=== PATIENT | female | born 1980 | race Caucasian/White ===

== ENCOUNTER 2018-11-02 16:10 | Outpatient (REF) | payer MEDICAID, SELFPAY ==
--- NOTE | 2018-11-02 14:45 | PAPFT_PTH ---
PATIENT: Bebe Perez LOC: [facility] U#:[id number] AGE/SX: 37/F ROOM: RE11/02/[address]: Sunitha Ramos : 1980 BED: DIS: 11/02/2018 SPEC #: [id number] RECD: 11/02/18 18:01 STATUS: QUAN DIMAS #: [id number] SHERRY: 11/02/18 14:[address]: Sunitha Ramos DEPT: [facility] Cytology RECD BY: Elyssa Saez ENTERED: 11/02/18 18:01 SP TYPE: PAPFT ROSY DR: Alma Rosa Banegas, ZULY Tissues: 1 - CX/ENDOCX FOR PAP SMEARS Procedures: PAP THIN PREP/UVM Screening Comments: [id number]
[2018-11-06 13:55] LABS: Chlamydia Result Negative; GC Result Negative; Specimen Description CERVIX
== END 2018-11-02 16:30 ==
LOC: LBN 16:10
PROVIDERS: PCP Nurse Practitioner Family; Visit Provider Obstetrics & Gynecology Gynecology
DX: Z00.00 Encounter for general adult medical examination without abnormal findings (principal); Z11.3 Encounter for screening for infections with a predominantly sexual mode of transmission; Z12.4 Encounter for screening for malignant neoplasm of cervix
CPT/HCPCS: 87491; 87591; 88142

== ENCOUNTER 2018-11-07 00:31 | Outpatient (CLI) | payer MEDICAID, SELFPAY ==
--- NOTE | 2018-11-07 12:44 | DI.US_ITS ---
SYMPTOMS/DIAGNOSIS: IUD STRING NOT PRESENT AT OS PELVIC ULTRASOUND: A transabdominal and transvaginal examination was carried out. An IUD is demonstrated in the endometrial cavity. The uterus measures 8.5 cm in length, 3.8 cm in height and 5.0 cm in width with an endometrial stripe thickness of 4.5 mm. The right ovary measures 3.3 x 1.7 x 1.5 cm, the left ovary 2.4 x 2.1 x 1.6 cm. The right kidney measures 10.5 cm, the left kidney 11.5 cm. There is no evidence of hydronephrosis. SUMMARY: An IUD is demonstrated in the endometrial cavity. The examination is otherwise unremarkable.
== END 2018-11-07 00:51 ==
PROVIDERS: PCP Nurse Practitioner Family; Visit Provider Obstetrics & Gynecology Gynecology
DX: T83.32XA Displacement of intrauterine contraceptive device, initial encounter (principal)
CPT/HCPCS: 76830; 76856

== ENCOUNTER 2019-04-08 10:45 | Outpatient (CLI) | payer MEDICAID, SELFPAY ==
[2019-04-08 12:06] LABS: ALT 47 U/L (14-59); AST 19 U/L (15-37); Alkaline Phosphatase 57 U/L (46-116); Anion Gap 6.8 mmol/L (3-11); BUN 12 mg/dL (7-18); Bilirubin, Total 0.4 mg/dL (0.2-1.0); CO2 28.2 mmol/L (21.0-32.0); CREATININE 0.88 mg/dL (0.55-1.02); Calcium 8.9 mg/dL (8.5-10.1); Calculated LDL 72 mg/dL; Chloride 106 mmol/L (98-107); Cholesterol 132 mg/dL (50-200); Glucose 85 mg/dL (70-100); HDL Cholesterol 54 mg/dL (40-60); Potassium 4.3 mmol/L (3.5-5.1); Sodium 141 mmol/L (136-145); TSH (W/Ref FT4) 0.37 uIU/mL (0.36-3.74); Total Protein 6.6 g/dL (6.4-8.2); Triglyceride 30 mg/dL (30-150)
== END 2019-04-08 11:05 ==
PROVIDERS: PCP Nurse Practitioner Adult Health; Visit Provider Nurse Practitioner Adult Health
DX: F32.9 Major depressive disorder, single episode, unspecified (principal); F41.9 Anxiety disorder, unspecified; R79.89 Other specified abnormal findings of blood chemistry; Z13.220 Encounter for screening for lipoid disorders; Z72.0 Tobacco use
CPT/HCPCS: 36415; 80053; 80061; 84443

== ENCOUNTER 2019-07-01 14:54 | Emergency (ER) | payer MEDICAID, SELFPAY ==
[2019-07-01 14:59] VITALS: BP 126/77; PULSE 89; RESP 18; TEMP 36.5; O2SAT 100
--- NOTE | 2019-07-01 15:27 | ED.GENADUL_ITS ---
Discharge Plan Disposition Patient Disposition: HOME Condition: Good Discharge Details Chief Complaint: Laceration Clinical Impression: Finger laceration Primary Care Provider: Ester Torres ED Provider: Ida Perdue Home Meds and New Rx's Prescriptions: Continued Mirena 1 EACH intrauterine device 1 ea Intrauterine ONCE Qty: 1 RF: 0 ibuprofen 600 MG tablet 600 mg PO Q6H PRN PRN (Reason: Abdominal Pain) Qty: 45 RF: 1 Discharge Instructions Instructions: Finger Laceration (ED) Additional Instructions: Keep wound clean, dry, covered. Please do not wash this until tomorrow. After that time, you may wash with running water to wash her hands and take shower. Otherwise, please keep dry. Allow the glue to come off naturally. Do not pick or pull at the adhesive. Monitor wound for signs infection getting redness, warmth, drainage, increased pain, fever/chills. If you develop these or other new/worsening symptom please seek care urgently once again. Otherwise, please follow-up with primary care as needed. Continue with splint for the next 5 days Referrals: Ester Torres, [facility] [employer] [Primary Care Provider] - Discharge Data Discharge Date/Time-TO BE ENTERED AT DEPARTURE: 07/01/19 15:58 Medical Decision Making Patient is a pleasant 38 year old RHD female presenting today with c/c of laceratin to the right hand. STate that she was cleaning a vase that had a chip when she cut her hand. Denies numbness/tingling. No weakness to the digit. Patient has a 1 cm linear laceration just distal to the MCP joint over the fifth digit right hand. It is in the subcutaneous tissue. No active bleeding. Patient will prefer to not closed with sutures. As the tissue does align well, I do feel that closure with adhesive followed by splinting is appropriate. Last tetanus was 2017. PProcedure note: Wound was copiously irrigated and explored to base in a bloodless field. No FB or debris noted. Wound edges aligned and thin layer of adhesive applied. She tolerated this well. Discussed wound care and discussed care of adhesive. She was given return precautions including signs of infection. All questions nad concerns were addressed, she is in agreemtn with this plan. Foam and metal splint applied. HPI General Mode of arrival: ambulatory . Date/Time Provider Initiated Documentation: 07/01/19 15:12 . Limitations to Documentation: no limitations . Information obtained by: patient and RN notes reviewed . History of Present Illness 38 year old F presents to the emergency department with the chief complaint of laceration to right 5th digit, described as moderate, Quality is described as burning, and is localized to the right and upper extremity. Patient reports no radiation. Patient started experiencing this minute(s) and it has been constant. No exacerbating factors reported . Patient notes no other symptoms.. Patient did receive the following treatments prior to arrival, none Related Data Home Medications Medication Instructions Recorded Confirmed ibuprofen 600 mg PO Q6H PRN PRN #45 tab 03/29/17 07/01/19 Mirena 1 ea INTRAUTERINE ONCE #1 implant 07/01/17 07/01/19 Previous Rx's Medication Instructions Recorded ibuprofen 600 mg PO Q6H PRN PRN #45 tab 03/29/17 Mirena 1 ea INTRAUTERINE ONCE #1 implant 07/01/17 Allergies Allergy/AdvReac Type Severity Reaction Status Date / Time codeine AdvReac Intermediate Nausea Verified 07/01/19 15:03 oxycodone [From Percocet] AdvReac Intermediate Nausea Verified 07/01/19 15:03 Sulfa (Sulfonamide AdvReac Intermediate Nausea Verified 07/01/19 15:03 Antibiotics) General Stated Complaint: Laceration MAGAN: 4 Review of Systems Constitutional Constitutional: Reports as per HPI, Denies chills and Denies fever(s) Musculoskeletal Musculoskeletal: Reports as per HPI Integumentary/Breasts Skin/Breast: Reports as per HPI Neurologic Neurologic: Reports as per HPI, Denies sensory deficit and Denies paresthesias [facility] Medical History Anxiety and depression (Chronic) Citalopram, Buspar, Sertraline & Paroxetine Counseling Atypical squamous cell changes of undetermined significance (ASCUS) on cervical cytology with negative high risk human papilloma virus (HPV) test result (Inactive 08/04/17) Calculus of kidney (Inactive 07/08/16) MADHAVI II (cervical intraepithelial neoplasia II) (Acute) 07/2017 colposcopy biopsy: MADHAVI-2. s/p LEEP. MADHAVI II (cervical intraepithelial neoplasia II) (Resolved 08/18/17) 07/2017. On colpo directed bx. 09/2017 LEEP: MADHAVI 2 clear margins. Functional urinary incontinence (Inactive 10/29/16) GERD (gastroesophageal reflux disease) (Inactive 07/08/16) History of herpes genitalis (Inactive 08/25/16) IUD (intrauterine device) in place (Chronic 08/11/17) Mirena. Strings not visible Pityriasis rosea (Inactive) Tension type headache, unspecified (Chronic 06/29/16) Tobacco use (Chronic 01/26/18) Vaginal wall prolapse without uterine prolapse (Acute 09/16/16) . That has improved and patient is not currently symptomatic Surgical History Cervical Conization/LEEP (Resolved 05/30/07) S/P wisdom tooth extraction (Acute) Social History Smoking/Tobacco Use Status: Current every day Alcohol Intake: never Drug use: Never Substance use type: does not use Household members: children and other Details: Ex- Pipo-resides in [place]. Pipo-F of youngest child. limited contact Housing: apartment Number of Children: 4 Communication Needs: None Do you need help understanding health information?: Never current occupation: Studying for [email or web address] Current gender identity: female What type of physical activity do you participate in: none Seatbelt use: sometimes Working smoke detector in home: Yes Fire extinguisher in home: Yes Carbon monox detector in home: Yes Do you feel safe in your relationship?: Yes Additional Social history: Children: [place], Miguel Angel, Estuardo, Ana Female Reproductive History Menstrual control method: progestin IUCD History History 5 Para 4 Hx # Term Pregnancies 4 Multiple births Hx # Pregnancies 0 Ectopic pregnancies AB induced Hx Number of Living Children 4 AB spontaneous Exam Const General: cooperative, healthy appearing, comfortable, no acute distress and well developed Nutritional Appearance: average body habitus and well nourished Orientation: alert and awake Resp Effort & Inspection: normal respiratory effort, able to speak in complete sentences and no respiratory distress Cardio Rate: regular rate Rhythm: regular rhythm Skin Trauma: laceration Neuro General: alert and awake Cognition: normal cognition Speech: speech normal Gait: normal gait Sensory Exam: no sensory deficits noted Extrem General: full ROM and normal capillary refill Hand/finger images: 1. 1cm laceration just distal to the MCP joint into the subQ tissue. No ligamentous injury. Good extension against resistance. Pain over area of laceration. No active bleeding. Full ROM. Brisk capillary refill. No FB or debris noted. Psych Appearance: grossly normal and well kempt Mental Status: mental status grossly normal Speech and Movement: speech and movement normal Course Vital Signs Vital signs: Vital Signs Temperature 36.5 C 07/01/19 14:59 Pulse 89 07/01/19 14:59 Respiratory Rate 18 07/01/19 14:59 Blood Pressure 126/77 07/01/19 14:59 Pulse Oximetry 100 07/01/19 14:59 Temperature 36.5 C 07/01/19 14:59 Temperature Source Skin 07/01/19 14:59 Pulse 89 07/01/19 14:59 Respiratory Rate 18 07/01/19 14:59 Respiratory Effort Non-Labored 07/01/19 15:01 Blood Pressure 126/77 07/01/19 14:59 Blood Pressure Position Sitting 07/01/19 14:59 Pulse Oximetry 100 07/01/19 14:59 Oxygen Delivery Method Room Air 07/01/19 14:59 Oxygen Flow Rate 0 07/01/19 14:59
== END 2019-07-01 15:58 | disposition home or self-care (01) ==
LOC: ER 16:02
PROVIDERS: Emergency Provider Physician Assistant; PCP Nurse Practitioner Adult Health
DX: S61.216A Laceration without foreign body of right little finger without damage to nail, initial encounter (principal); W26.8XXA Contact with other sharp object(s), not elsewhere classified, initial encounter
CPT/HCPCS: 12001

== ENCOUNTER 2020-01-15 18:14 | Emergency (ER) | payer MEDICAID, SELFPAY ==
[2020-01-15 18:21] VITALS: BP 136/89; PULSE 90; RESP 14; TEMP 36.6; O2SAT 99
--- NOTE | 2020-01-15 18:30 | RT.EKG_ITS ---
APPROVED REPORT Exam: Resting ECG Patient Location: E HR:81 bpm ECG Measurements Heart Rate 81 AXIS LA 173 P 93 QRSd 91 QRS 51 QT 355 T 54 QTc 414 Conclusion Sinus rhythm...normal P axis, V-rate 60- 99
--- NOTE | 2020-01-15 18:37 | ED.GENADUL_ITS ---
Discharge Plan Disposition Patient Disposition: HOME Condition: Good Discharge Details Chief Complaint: Abd Prob Clinical Impression: Generalized anxiety disorder, Epigastric burning sensation, Burning chest pain, UTI (urinary tract infection) Primary Care Provider: Ester Torres ED Provider: Martin Seymour Home Meds and New Rx's Prescriptions: New cephalexin [Keflex] 500 mg capsule 500 mg PO QID 5 Days Qty: 20 RF: 0 Continued Mirena 1 EACH intrauterine device 1 ea Intrauterine ONCE Qty: 1 RF: 0 lorazepam 0.5 mg tablet 0.5 mg PO DAILY PRN (Reason: anxiety) Qty: 10 RF: 0 ibuprofen 600 MG tablet 600 mg PO Q6H PRN PRN (Reason: Abdominal Pain) Qty: 45 RF: 1 Discharge Instructions Instructions: Chest Pain (ED), Urinary Tract Infection in Women (ED) Additional Instructions: At this time in hindsight does appear that your symptoms in your chest are likely from anxiety, panic, mild reflux. Your heart work-up is negative at this time. You do have evidence of a mild urinary tract infection. Please take the Keflex as directed. Please drink plenty of fluid and drink plenty of cranberry juice as this will help with the infection. If you notice any worsening of your symptoms, or any new symptoms such as vomiting, diarrhea, fever, chills, shortness of breath, chest pain, numbness, weakness, or fainting , please return immediately to the emergency department for reevaluation. Please follow up with your primary care provider as soon as possible for reassessment and reevaluation. As always, it was a pleasure participating in your medical care today. Referrals: Ester Torres NP [Primary Care Provider] - Medical Decision Making <Josemanuel Conner MD - Last Filed: 01/15/20 19:40> 39 yo female with hx of anxiety, who comes in complaining of epigastric and chest burning and feeling anxious. Denies dyspnea, fevers, chills, n/v. She has no prior cardiac history. She arrives visibly anxious having burning in the epigastric area and mid chest. Denies diaphoresis. She has no abdominal tenderness, leg swelling, jvd, calf pain. Suspect her symptoms are due to anxiety/panic disorder but given description of pain will obtain lab work to evaluate for pancreatitis, hepatitis. Her heart score is 2 so will obtain ecg and troponin. No tachycardia or hypoxia, wells score is low will obtain d dimer and monitor. No tearing back pain so doubt dissection pt will be signed out to oncoming provider pending lab results and reassessment Differential Diagnosis Differential Diagnosis: anxiety, pancreatitis acs ECG Data Attestation: I personally reviewed and interpreted this ECG (s) as follows: Prior ECG tracings: not available for review Interpretation: sinus rhythm, rate of 80 pr 173, qtc 414, no acute st t wave ischemic findings <Martin Seymour DO - Last Filed: 01/15/20 23:00> 10:45 PM Patient's laboratory work-up has returned, including serial troponins. Serial troponins and work-up are negative, d-dimer negative, no indication for further emergent imaging. Urinalysis does show evidence of urinary tract infection and on reassessment she does state that she has been having frequency and mild burning. However she has been too anxious to come to the ER of concern for coronavirus. The remainder of her work-up is otherwise benign at this time. Heart score in the low risk category, with serial troponins EKG is benign, signs and symptoms are clinically inconsistent with ACS or STEMI. Patient will be discharged home at this time. Give Keflex for home use and a bottle here to start her prescription. I have extensively reviewed the treatment plan and discharge instructions with the patient. I have addressed all patient concerns at this time. The patient was made aware of what symptoms to monitor for that would warrant a return to the emergency department. Discussed the plan with the patient, they demonstrate verbal understanding and agreement with our assessment and plan at this time. HPI <Josemanuel Conner MD - Last Filed: 01/15/20 19:40> General Mode of arrival: ambulatory . Date/Time Provider Initiated Documentation: 01/15/20 18:26 . Limitations to Documentation: no limitations . Information obtained by: patient . History of Present Illness 39 year old F presents to the emergency department with the chief complaint of epigastric pain, described as moderate, and it has been constant. No relieving factors improve symptom(s), No exacerbating factors reported . Related Data Home Medications Medication Instructions Recorded Confirmed ibuprofen 600 mg PO Q6H PRN PRN #45 tab 03/29/17 01/15/20 Mirena 1 ea INTRAUTERINE ONCE #1 implant 07/01/17 01/15/20 lorazepam 0.5 mg tablet 0.5 mg PO DAILY PRN #10 tab 09/15/19 01/15/20 cephalexin [Keflex] 500 mg PO QID 5 Days #20 cap 01/15/20 Previous Rx's Medication Instructions Recorded ibuprofen 600 mg PO Q6H PRN PRN #45 tab 03/29/17 Mirena 1 ea INTRAUTERINE ONCE #1 implant 07/01/17 lorazepam 0.5 mg tablet 0.5 mg PO DAILY PRN #10 tab 09/15/19 cephalexin [Keflex] 500 mg PO QID 5 Days #20 cap 01/15/20 Allergies Allergy/AdvReac Type Severity Reaction Status Date / Time codeine AdvReac Intermediate Nausea Verified 01/15/20 18:25 oxycodone [From Percocet] AdvReac Intermediate Nausea Verified 01/15/20 18:25 Sulfa (Sulfonamide AdvReac Intermediate Nausea Verified 01/15/20 18:25 Antibiotics) General Stated Complaint: Abd Prob MAGAN: 3 Review of Systems <Josemanuel Conner MD - Last Filed: 01/15/20 19:40> All systems reviewed & are unremarkable except as noted in HPI and below Constitutional Constitutional: Denies chills, Denies fever(s) and Denies weakness Cardiovascular Cardiovascular: Denies dyspnea Respiratory Respiratory: Denies cough and Denies dyspnea Gastrointestinal Gastrointestinal: Denies abdominal pain, Denies nausea and Denies vomiting Musculoskeletal Musculoskeletal: Denies joint swelling Neurologic Neurologic: Denies weakness Psychiatric Psychiatric: Denies depression [facility] <Josemanuel Conner MD - Last Filed: 01/15/20 19:40> Medical History (Updated 01/15/20 @ 22:06 by Martin Seymour DO) Anxiety and depression (Chronic) Citalopram, Buspar, Sertraline & Paroxetine Counseling Atypical squamous cell changes of undetermined significance (ASCUS) on cervical cytology with negative high risk human papilloma virus (HPV) test result (Inactive 08/04/17) Calculus of kidney (Inactive 07/08/16) MADHAVI II (cervical intraepithelial neoplasia II) (Acute) 07/2017 colposcopy biopsy: MADHAVI-2. s/p LEEP. MADHAVI II (cervical intraepithelial neoplasia II) (Resolved 08/18/17) 07/2017. On colpo directed bx. 09/2017 LEEP: MADHAVI 2 clear margins. Functional urinary incontinence (Inactive 10/29/16) GERD (gastroesophageal reflux disease) (Inactive 07/08/16) History of herpes genitalis (Inactive 08/25/16) IUD (intrauterine device) in place (Chronic 08/11/17) Mirena. Strings not visible Pityriasis rosea (Inactive) Tension type headache, unspecified (Chronic 06/29/16) Tobacco use (Chronic 01/26/18) Vaginal wall prolapse without uterine prolapse (Acute 09/16/16) . That has improved and patient is not currently symptomatic Surgical History Cervical Conization/LEEP (Resolved 05/30/07) S/P wisdom tooth extraction (Acute) Family History Mother Diabetes Essential hypertension Father Myocardial infarction Grandfather Myocardial infarction Thyroid disorder Grandfather Diabetes Stroke Grandmother Dementia Grandmother Diabetes Neoplasm Lung (Non-Smoker), Ovarian, Renal Stroke Sister Mental disorder BiPolar Asthma Brother Mental disorder Schizophrenia (age 25) Maternal Aunt Neoplasm Colon CA dx'ed late 50s Social History Smoking/Tobacco Use Status: Current every day Alcohol Intake: never Drug use: Never Substance use type: does not use Household members: children and other Details: Ex- [place]-resides in [place]. [place]-F of youngest child. limited contact Housing: apartment Number of Children: 4 Communication Needs: None Do you need help understanding health information?: Never current occupation: Studying for [employer] Current gender identity: female What type of physical activity do you participate in: none Seatbelt use: sometimes Working smoke detector in home: Yes Fire extinguisher in home: Yes Carbon monox detector in home: Yes Do you feel safe at home: Yes Do you feel safe in your relationship?: Yes Additional Social history: Children: Miguel Angel [place], Ana Marte Female Reproductive History Menstrual control method: progestin IUCD History History 5 Para 4 Hx # Term Pregnancies 4 Multiple births Hx # Pregnancies 0 Ectopic pregnancies AB induced Hx Number of Living Children 4 AB spontaneous Exam <Josemanuel Conner MD - Last Filed: 01/15/20 19:40> Const General: anxious Orientation: alert HENUT Head: normal to inspection Ears: external ears normal General nose exam: external nose normal Mouth: moist mucous membranes Eyes General: appearance normal, both eyes and all related structures Neck Neck: normal visual inspection Resp Effort & Inspection: normal respiratory effort and able to speak in complete sentences Cardio Rate: regular rate Skin General skin exam: no rashes or lesions noted Neuro General: patient alert and patient oriented x3 Extrem General: normal to inspection Psych Mental Status: mental status grossly normal Course <Josemanuel Conner MD - Last Filed: 01/15/20 19:40> Vital Signs Vital signs: Vital Signs Temperature 36.6 C 01/15/20 18:21 Pulse 90 01/15/20 18:21 Respiratory Rate 14 01/15/20 18:21 Blood Pressure 136/89 01/15/20 18:21 Pulse Oximetry 99 01/15/20 18:21 Temperature 36.6 C 01/15/20 18:21 Temperature Source Tympanic 01/15/20 18:21 Pulse 90 01/15/20 18:21 Respiratory Rate 14 01/15/20 18:21 Respiratory Effort Non-Labored 01/15/20 18:24 Blood Pressure 136/89 01/15/20 18:21 Blood Pressure Position Sitting 01/15/20 18:21 Pulse Oximetry 99 01/15/20 18:21 Oxygen Delivery Method Room Air 01/15/20 18:21 Oxygen Flow Rate 0 01/15/20 18:21 Pain Level 0 01/15/20 18:21 Comment 01/15/20 18:21 Sign Out <Josemanuel Conner MD - Last Filed: 01/15/20 19:40> Sign Out Data: Sign Out Comment: pending labs and reassessment, anxiety chest/abdomen burning sensation Last updated by Josemanuel Conner MD at 01/15/20 19:41
[2020-01-15 19:15] LABS: Bilirubin Negative (Negative); Blood Trace-intact (Negative); Clarity Clear (Clear); Glucose Negative (Negative); Ketones Negative (Negative); Leukocyte Esterase Small (Negative); Nitrite Negative (Negative); Specific Gravity 1.015 (1.005-1.025); Urobilinogen 0.2 EU/dL (Up TO 0.2)
[2020-01-15 19:23] LABS: Bacteria Few HPF (Negative); Epithelial Cells Moderate HPF (Negative); Other Cells Negative (Negative); RBC Negative HPF (0-2)
[2020-01-15 19:24] LABS: C & S Indicated? No/Sq. Contamination; Casts Negative LPF (Negative); Crystals Negative HPF (Negative); Mucus Negative (Negative)
[2020-01-15 19:27] LABS: Abs Immature Grans 0.03 10^3/uL (0.0-0.06); Absolute Basophil Count 0.03 10^3/uL (0.0-0.2); Absolute Eosinophil Count 0.34 10^3/uL (0.0-0.7); Absolute Monocyte Count 0.47 10^3/uL (0.1-0.8); Absolute Neutrophil Count 6.52 10^3/uL (1.2-6.7); Basophils % 0.3; Eosinophils % 3.5; HCT 39.6 % (36.0-46.0); HGB 13.6 g/dL (11.2-15.7); Immature Grans % 0.3; Lymphocytes % 22.9; MCHC 34.3 % (32.0-36.0); MCV 90.2 fL (80-95); Monocytes % 4.9; Neutrophils % 68.1; Nucleated RBC 0 %; Platelet Count 241 10^3/uL (130-400); RBC 4.39 10^6/uL (3.93-5.22); RDW 12.2 % (11.7-14.6); RDW-SD 40.5 fL; WBC 9.59 10^3/uL (4.4-10.8)
[2020-01-15 19:43] LABS: PTT Activated 22.1 sec (21.0-31.4); Prothrombin Time 9.7 sec (9.3-11.0)
[2020-01-15 19:45] LABS: ALT 41 U/L (14-59); AST 27 U/L (15-37); Alkaline Phosphatase 65 U/L (46-116); Anion Gap 9.7 mmol/L (3-11); BUN 8 mg/dL (7-18); Bilirubin, Total 0.2 mg/dL (0.2-1.0); CO2 27.3 mmol/L (21.0-32.0); CREATININE 0.83 mg/dL (0.55-1.02); Chloride 106 mmol/L (98-107); Glucose 125 mg/dL (74-106); Lipase 120 U/L (73-393); Potassium 3.5 mmol/L (3.5-5.1); Sodium 143 mmol/L (136-145)
[2020-01-15 19:53] LABS: Magnesium 2.2 mg/dL (1.8-2.4)
[2020-01-15 19:54] LABS: Troponin I < 0.05 ng/mL (<0.06)
[2020-01-15 19:57] LABS: HCG Qual (Serum) Negative
[2020-01-15 20:00] LABS: D-Dimer 198 ng/mlFEU (<500)
--- NOTE | 2020-01-15 20:00 | RT.EKG_ITS ---
APPROVED REPORT Exam: Resting ECG Patient Location: E HR:60 bpm ECG Measurements Heart Rate 60 AXIS IN 187 P 76 QRSd 86 QRS 57 QT 384 T 56 QTc 385 Conclusion Sinus rhythm...normal P axis, V-rate 60- 99, no STEMI, unchanged
[2020-01-15] MEDS: LORazepam 1 MG TAB PO (20:09)
[2020-01-15 20:59] VITALS: BP 132/80; PULSE 79; RESP 16; TEMP 36.8; O2SAT 99
[2020-01-15 22:22] VITALS: BP 105/68; PULSE 64; RESP 14; O2SAT 100
[2020-01-15 22:48] LABS: Troponin I < 0.05 ng/mL (<0.06)
[2020-01-15] MEDS: Cephalexin 500 MG CAP, 4 CAPS/BTL PO (22:57)
== END 2020-01-15 23:25 | disposition home or self-care (01) ==
PROVIDERS: Emergency Medicine; Emergency Provider Student in an Organized Health Care Education/Training Program; PCP Nurse Practitioner Adult Health
DX: N39.0 Urinary tract infection, site not specified (principal); K21.9 Gastro-esophageal reflux disease without esophagitis; F41.1 Generalized anxiety disorder; R07.89 Other chest pain
CPT/HCPCS: 36415; 80053; 81025; 83690; 93005; 99284; 81003; 81015; 83735; 84484; 84703; 85025; 85379; 85610; 85730; 93010

== ENCOUNTER 2020-07-10 02:32 | Outpatient (CLI) | payer MEDICAID, SELFPAY ==
[2020-07-12 09:03] LABS: COVID-19 RT-PCR UVMMC Result Negative (Negative)
== END 2020-07-10 02:33 | disposition home or self-care (01) ==
LOC: LBO 02:32
PROVIDERS: PCP Nurse Practitioner Adult Health; Visit Provider Surgery
DX: Z20.822 Contact with and (suspected) exposure to COVID-19 (principal); Z01.818 Encounter for other preprocedural examination
CPT/HCPCS: U0003

== ENCOUNTER 2020-07-14 06:13 | Day surgery (SDC) | payer MEDICAID, SELFPAY ==
[2020-07-14 06:30] VITALS: BP 119/76; PULSE 85; RESP 18; TEMP 36.5; O2SAT 100
--- NOTE | 2020-07-14 06:42 | ENDO_ITS ---
Date of service: 07/14/20 Time of Service: 07:57 Endoscopy Report DATE OF PROCEDURE: 07/14/20 PRE-OP DIAGNOSIS: Feeling of her throat closing POST-OP DIAGNOSIS: other (Gastritis, esophagitis, Hiatal hernia, ? esophageal polyp) PROCEDURE: EGD with biopsies SURGEON: Elsie Bunch ANESTHESIA: other (General/ASA 2/Preet Casillas, WES) ESTIMATED BLOOD LOSS: 3 PATHOLOGY: other (Antrum bx, GE junction bx, GE junction polyp bx) COMPLICATIONS: None DISPOSITION: same day INDICATIONS: 39 y/o female with a history of PTSD, panic attacks, and anxiety presents to discuss a chronic sensation of pressure in her throat since July 29. She was seen by ENT at which time they performed a flexible laryngoscopy on 03/07/20 which noted there was erythema and edema of the arytenoid cartilage and posterior commissure. Shortly after this she was started on Famotidine and then switched to Omeprazole, with minimal change in her symptoms. She reports that she has an intermittent cough, with minimal mucus. She has noticed that she frequently clears her sinus passages, the area where my throat and nose meet. She does not feel that these symptoms are allergy related. She describes that she has high anxiety and frequently becomes concerned about what may be causing her symptoms and these feelings and thoughts can become over whelming. She is concerned that her symptoms may be related to cancer. She denies any chest pain, dyspnea or dyspnea with exterion. She denies any history of adverse reactions to anesthesia. She denies any history of stroke, seizures, [place], bleeding or clotting disorder. She denies having any metal impl anted in her body. FINDINGS: mild inflammation of the stomach Hiatal Hernia mild inflammation of the esophagus polyp at the GE junction PROCEDURE DESCRIPTION: After informed consent was obtained the patient was take to the procedure room and placed in a supine position. Monitors were applied and a time out was done. The patients name, date of , procedure type, allergies to medications and metal in their body was reviewed. A bite block was placed and the patient was sedated. Once sedated and comfortable the gastroscope was advanced through the oropharynx which was grossly normal into the esophagus. The proximal and mid- esophagus were normal. In the distal esophagus there was mild inflammation noted. The scope was advanced into the stomach and through the pylorus into the 3rd portion of the duodenum. The duodenum was noted to be normal. The scope was retracted back into the stomach and biopsies were done to rule out H. pylori. There were no ulcers. The scope was retro-flexed. The cardia and fundus were noted to be normal. There was a small hiatal hernia noted. The sco pe was retracted back into the esophagus and biopsies were done of the GE junction to rule out Denney's. The Z line was regular. The GE junction was at 35 cm. There was a small polyp at the GE junction that was biopsied. The scope was removed and the patient was woken up and taken back to [facility] in stable condition. Follow up: 2 weeks in the office. Restart Omeprazole
--- NOTE | 2020-07-14 06:44 | PDOC.DSDIS_ITS ---
Discharge Plan Disposition Patient Disposition: HOME Condition: Good Discharge Details Reason For Visit: EGD Attending Provider: Elsie Bunch Primary Care Provider: Ester Torres Home Meds and New Rx's Prescriptions: Continued Mirena 1 EACH intrauterine device 1 ea Intrauterine ONCE Qty: 1 RF: 0 sertraline 25 mg tablet 25 mg PO DAILY Qty: 30 RF: 1 clonazepam 0.5 mg tablet,disintegrating 0.5 mg PO BID PRN (Reason: panic attack(s)) Qty: 10 RF: 0 omeprazole 40 mg capsule,delayed release(DR/EC) 40 mg PO DAILY Qty: 30 RF: 1 ibuprofen 600 MG tablet 600 mg PO Q6H PRN PRN (Reason: Abdominal Pain) Qty: 45 RF: 1 Discharge Instructions Instructions: Hiatal Hernia (DC), Gastritis (DC), Diet for Stomach Ulcers and Gastritis (ED), Esophagitis (DC) Additional Instructions: Findings: some mild inflammation of the stomach, esophagus Small Hiatal hernia Small inflammatory polyp in the esophagus Follow up: 2 weeks Please call if you develop: fevers >101.5 Nausea or Vomiting Abdominal pain that is not transient DAY SURGERY UNIT POST ENDOSCOPY INSTRUCTIONS 1. Because there will be medication in your system for the next 24 hours, you may feel a little sleepy. Your coordination will be affected. Therefore: a. Do not drive or operate dangerous equipment for 24 hours. b. Do not drink alcohol beverages for 24 hours (not even beer). c. Plan to go home and rest for the day. 2. Generally there are no restrictions on your activity after a day or so has gone by, but you may feel a bit fatigued for a few days. 3 After you arrive home you may have a light meal and return to a normal diet as you can tolerate it without feeling sick to your stomach. 4. After surgery, you may feel pain or discomfort. This should be only transient, but if it persists please contact your doctor. 5. If there are any questions regarding the findings of your procedure, please feel free to contact your doctor. 6. If you are unable to contact your doctor with a problem, contact the hospital at [phone]. 7. Continue all your regular medications unless directed otherwise. I understand the above instructions and have no questions. Signature of Patient or Responsible Adult Escort Date/Time Name of Responsible Adult Escort Signature of Nurse Date/Time Referrals: Elsie Bunch MD [ [facility] STAFF PHYSICIAN] - 07/29/20 8:30 am Activity:: Activity as Tolerated Diet:: low acid Discharge Orders Discharge Orders: Discharge Order (Routine); Ordered 07/14/20 Ordered By: Elsie Bunch
[2020-07-14] MEDS: Lactated Ringers 1,000 ML 80 ML IV (07:24)
--- NOTE | 2020-07-14 07:30 | STOM_PTH ---
PATIENT: Bebe Perez LOC: [facility] U#:[id number] AGE/SX: 39/F ROOM: RE07/14/[address]: Elsie Bunch MD : 1980 BED: DIS: 07/14/2020 SPEC #: [id number] RECD: 07/14/20 12:46 STATUS: QUAN RE #: [id number] SHERRY: 07/14/20 07:[address]: Elsie Bunch DEPT: Surgical Specimen RECD BY: Elyssa Saez ENTERED: 07/14/20 12:48 SP TYPE: STOMACH OTHR DR: Ester Torres APRN Tissues: 1 - STOMACH BIOPSY 2 - ESOPHAGUS BIOPSY 3 - ESOPHAGUS BIOPSY Procedures: GROSS AND MICRO LEVEL 4 Comments: [id number]
[2020-07-14 07:55] VITALS: BP 129/74; PULSE 91; RESP 18; TEMP 36.5; O2SAT 97
[2020-07-14 08:00] VITALS: BP 120/83; PULSE 84; RESP 17; TEMP 36.5; O2SAT 96
[2020-07-14 08:05] VITALS: BP 117/75; PULSE 82; RESP 21; TEMP 36.5; O2SAT 96
[2020-07-14 08:10] VITALS: BP 109/71; PULSE 76; RESP 18; TEMP 36.5; O2SAT 96
[2020-07-14 08:40] VITALS: BP 94/54; PULSE 63; RESP 15; TEMP 36.6; O2SAT 95
== END 2020-07-14 09:20 | disposition home or self-care (01) ==
PROVIDERS: PCP Nurse Practitioner Adult Health; Visit Provider Surgery
PROC: 0DJ68ZZ Inspection of Stomach, Via Natural or Artificial Opening Endoscopic (ICD-10-PCS; CPT 43235; principal; 2020-07-14 07:30)
DX: F45.8 Other somatoform disorders (principal); K21.00 Gastro-esophageal reflux disease with esophagitis, without bleeding; K29.70 Gastritis, unspecified, without bleeding; K44.9 Diaphragmatic hernia without obstruction or gangrene; F43.10 Post-traumatic stress disorder, unspecified
CPT/HCPCS: 43239; 81025; 88305; J2001; J2250; J3010

== ENCOUNTER 2020-11-30 13:53 | Outpatient (REF) | payer MEDICAID, SELFPAY ==
[2020-12-03 16:55] LABS: COVID-19 RT-PCR UVMMC Result Negative (Negative)
== END 2020-11-30 13:54 | disposition home or self-care (01) ==
LOC: LBN 13:53
PROVIDERS: PCP Nurse Practitioner Adult Health; Visit Provider Pediatrics
DX: Z20.822 Contact with and (suspected) exposure to COVID-19 (principal)
CPT/HCPCS: U0003

== ENCOUNTER 2021-01-27 11:19 | Outpatient (REF) | payer MEDICAID, SELFPAY | END 2021-01-27 11:20 | disposition home or self-care (01) | LOC: LBN 11:19 | PROVIDERS: PCP Nurse Practitioner Adult Health; Visit Provider Family Medicine | DX: N39.0 Urinary tract infection, site not specified (principal) | CPT/HCPCS: 87077; 87086 ==

== ENCOUNTER 2021-08-18 02:37 | Outpatient (CLI) | payer MEDICAID, SELFPAY ==
[2021-08-18 10:24] LABS: HCT 42.1 % (36.0-46.0); HGB 14.2 g/dL (11.2-15.7); MCH 30.5 pg (27.0-33.0); MCHC 33.7 % (32.0-36.0); MCV 90.5 fL (80-95); MPV 9.4 fL (8.0-11.0); Platelet Count 241 10^3/uL (130-400); RBC 4.65 10^6/uL (3.93-5.22); RDW 12.1 % (11.7-14.6); RDW-SD 40.2 fL; WBC 6.38 10^3/uL (4.4-10.8)
[2021-08-18 11:32] LABS: ALT 36 U/L (14-59); AST 18 U/L (15-37); Albumin 4.1 g/dL (3.4-5.0); Alkaline Phosphatase 59 U/L (46-116); Anion Gap 7.5 mmol/L (3-11); BUN 14 mg/dL (7-18); Bilirubin, Total 0.5 mg/dL (0.2-1.0); CO2 26.5 mmol/L (21.0-32.0); CREATININE 0.9 mg/dL (0.55-1.02); Calcium 8.7 mg/dL (8.5-10.1); Calculated LDL 84 mg/dL (<100); Chloride 104 mmol/L (98-107); Cholesterol 147 mg/dL (<200); Glucose 89 mg/dL (74-106); HDL Cholesterol 55 mg/dL (40-60); Potassium 3.8 mmol/L (3.5-5.1); Sodium 138 mmol/L (136-145); TSH (W/Ref FT4) 0.79 uIU/mL (0.36-3.74); Total Protein 6.8 g/dL (6.4-8.2); Triglyceride 42 mg/dL (<150)
== END 2021-08-18 02:38 | disposition home or self-care (01) ==
LOC: LBO 02:37
PROVIDERS: PCP Nurse Practitioner Adult Health; Visit Provider Nurse Practitioner Adult Health
DX: F41.1 Generalized anxiety disorder (principal); R79.89 Other specified abnormal findings of blood chemistry; Z13.220 Encounter for screening for lipoid disorders; Z13.1 Encounter for screening for diabetes mellitus
CPT/HCPCS: 36415; 80053; 80061; 85027; 84443

== ENCOUNTER → 2021-10-07 00:19 | Outpatient (CLI) | payer MEDICAID, SELFPAY ==
--- NOTE | 2021-10-07 08:00 | DI.MAMMO_ITS ---
Exam(s) MAMMO SCREENING EXAM: MAMMO SCREENING CLINICAL HISTORY: screening,z12.39, baseline, family h/o breast ca,z80.3 TECHNIQUE: Mammograms were interpreted according to the usual protocol including computer analysis w [employer] CAD system, tomosynthesis and C-view imaging. COMPARISON: FINDINGS: The breasts are heterogeneously dense. There is fairly symmetrical distribution of fibroglandular ti ssue in the breast. No dominant mass or clumped microcalcification is identified in either breast. Today's examination is a baseline examination. IMPRESSION: No specific evidence of malignancy at this time. Routine screening examinations are suggested at yea rly intervals due to the family history of breast carcinoma. Category Breast Density - Category C - Heterogeneously dense
== END ==
PROVIDERS: PCP Nurse Practitioner Adult Health; Visit Provider Nurse Practitioner Adult Health
DX: Z12.31 Encounter for screening mammogram for malignant neoplasm of breast (principal); Z80.3 Family history of malignant neoplasm of breast
CPT/HCPCS: 77063; 77067

== ENCOUNTER 2022-04-15 12:38 | Outpatient (REF) | payer MEDICAID, SELFPAY ==
--- NOTE | 2022-04-15 11:30 | PAPFT_PTH ---
PATIENT: Bebe Perez LOC: [facility] U#:[id number] AGE/SX: 41/F ROOM: RE04/15/[address]: Sunitha Ramos : 1980 BED: DIS: 04/15/2022 SPEC #: [id number] RECD: 04/15/22 17:29 STATUS: QUAN COCHRAN #: [id number] SHERRY: 04/15/22 11:[address]: Sunitha Ramos DEPT: [facility] Cytology RECD BY: Elyssa Saez ENTERED: 04/15/22 17:30 SP TYPE: PAPFT ROSY DR: Ester Torres APRN Tissues: 1 - CX/ENDOCX FOR PAP SMEARS Procedures: PAP THIN PREP/UVM Screening HPV DNA PROBE Comments: [id number]
== END 2022-04-15 12:39 | disposition home or self-care (01) ==
LOC: LBN 12:38
PROVIDERS: PCP Nurse Practitioner Adult Health; Visit Provider Obstetrics & Gynecology Gynecology
DX: Z12.4 Encounter for screening for malignant neoplasm of cervix (principal); Z11.51 Encounter for screening for human papillomavirus (HPV)
CPT/HCPCS: 88142; 87624

== ENCOUNTER → 2023-04-11 00:49 | Outpatient (CLI) | payer MEDICAID, SELFPAY ==
--- NOTE | 2023-04-11 08:15 | DI.MAMMO_ITS ---
Exam(s) MAMMO SCREENING EXAM: MAMMO SCREENING CLINICAL HISTORY: screening,z12.39. TECHNIQUE: Bilateral full field digital CC and MLO mammographic images were obtained with 3D tomosyn thesis and utilizing computer aided detection (CAD). COMPARISON: Prior baseline mammogram of September 2021 was reviewed FINDINGS: Fibroglandular tissue pattern is again noted be moderately dense, this somewhat decreasing the sensit ivity of the mammogram finding hidden underlying lesions. There are obvious no new spiculated masses nor malignant appearing microcalcification groups. There is no significant architectural distortion nor skin thickening-retraction. IMPRESSION: No radiographic evidence of malignancy. BI-RADS Category 1 - Negative Breast Density - Category C - Heterogeneously dense Breast density Category C or D implies that the patient has dense breast tissue. Dense breast tissue can make it harder to find cancer on a mammogram. Dense breast tissue is also associated with an incr eased risk of breast cancer. This information about the result of the mammogram report was provided to the patient to raise their awareness. Use this report when you speak with the patient about their risks for breast cancer, which includes their family history. At that time, you may recommend additional screening tests (Ultrasoun d or MRI) as these tests may add significant information. A negative radiographic report should not delay biopsy if a dominant or clinically suspicious mass is present. Up to ten percent of cancers are not identified on mammography. A negative report may reinforce clinical impression. Adenosis and dense breasts may obscure an underlying neoplasm. False positive reports average 6 to 10%. Patient will receive a letter notifying them of these results.
== END ==
PROVIDERS: PCP Nurse Practitioner Adult Health; Visit Provider Nurse Practitioner Adult Health
DX: Z12.31 Encounter for screening mammogram for malignant neoplasm of breast (principal)
CPT/HCPCS: 77063; 77067

== ENCOUNTER → 2023-05-06 00:55 | Outpatient (CLI) | payer MEDICAID, SELFPAY ==
--- NOTE | 2023-05-06 07:01 | DI.US_ITS ---
Exam(s) US ABD PELV TRANSVAG NON-OB EXAM: US ABD PELV TRANSVAG NON-OB CLINICAL HISTORY: pelvic pain several months,NAUSEA,R10.2,R11.O TECHNIQUE: Ultrasound of the abdomen and pelvis was performed both transabdominal and transvaginal. COMPARISON: US US PELVIS TRANSVAGINAL from 11/07/2018 FINDINGS: ABDOMEN: There is no ascites evident. LIVER: There are no hepatic lesions evident nor obvious dilatation of intrahepatic ducts. GALLBLADDER/BILIARY: There is a 1.7 cm shadowing gallstones in the gallbladder lumen. No gallbladder wall edema. No pericholecystic fluid. The common hepatic duct isless than optimally seen not adequately measured on today's study., PANCREAS: There is no evidence of pancreatic mass nor dilatation of the pancreatic duct. SPLEEN: The spleen is not enlarged and there are no intrasplenic lesions evident. KIDNEYS:Kidneys exhibit normal size with no evidence of solid mass, calculus, nor hydronephrosis. No cortical cysts evident. ABDOMINAL AORTA: There is no evidence of abdominal aortic aneurysm. IVC: Normal diameter where visualized. UTERUS: Measures 8.8 cm length x 4 cm AP x cm wide. There are no uterine fibroids. Endometrial thickness measures 1.5 millimeters mm. There is an IUD in satisfactory position in the uterine canal. There is no fluid in the Endometrial canal. CERVIX: There are no obvious nabothian cysts. RIGHT OVARY: Measures 3.2 x 2.7 x 2.3 cm cm There is a septated cyst in the right ovary measuring 2.5 x 2.3 x 2.0 cm. Some flow is demonstrated within the thin septum. LEFT OVARY: Measures 2.4 x 1.9 x 2.5 cm No significant cysts nor masses evident in the left ovary. CUL-DE-SAC: No free fluid evident. IMPRESSION: 1. Cholelithiasis. There is a shadowing 1.7 cm gallstone noted. No obvious gallbladder wall edema. Diameter of the CBD is difficult to measure on today's study due to overlying bowel gas in this angelina on. 2. No other significant ultrasound findings in the upper abdomen. 3. There is a 2.5 x 2.3 x 2.0 cm septated cyst in the right ovary. Requires follow-up. 4. IUD in satisfactory position in the endometrial canal. No fluid in the endometrial canal. 6. No free fluid evident in the adnexal regions and cul-de-sac. 7. DATA REPOSITORY:
== END ==
PROVIDERS: PCP Nurse Practitioner Adult Health; Visit Provider Nurse Practitioner
DX: K80.00 Calculus of gallbladder with acute cholecystitis without obstruction (principal); N83.292 Other ovarian cyst, left side; Z97.5 Presence of (intrauterine) contraceptive device
CPT/HCPCS: 76700; 76830; 76856

== ENCOUNTER 2024-04-18 22:51 | Emergency (ER) | payer MEDICAID, SELFPAY ==
[2024-04-18 22:54] VITALS: BP 152/72; PULSE 100; RESP 18; TEMP 36.9; O2SAT 98
[2024-04-18 23:41] LABS: COVID-19 PCR Negative (Negative); Influenza A PCR Negative (Negative); Influenza B PCR Negative (Negative); RSV PCR Negative (Negative)
--- NOTE | 2024-04-18 23:41 | ED.GENADUL_ITS ---
Discharge Plan Disposition Patient Disposition: Home Condition: Good Discharge Details Clinical Impression: Cough Primary Care Provider: Ester Torres ED Provider: Dannielle Paez Home Meds and New Rx's Prescriptions: No Action Mirena 20 mcg/24 hours (8 yrs) 52 mg intrauterine device 1 device Intrauterine ONCE Qty: 1 0RF Patient Comments: pt states she has one currently ibuprofen 600 mg tablet 600 mg PO Q6H PRN (Reason: pain) Qty: 60 1RF clonazepam 0.5 mg tablet,disintegrating 0.5 mg PO BID PRN (Reason: panic attack(s)) Qty: 10 0RF ketoconazole 2 % cream 1 applic topical BID Rx Instructions: Apply twice daily to affected areas on the face for 21 days and then as needed subsequently--[facility] Derm 09/21/23 Discharge Instructions Instructions: Upper respiratory infection in adults - Discharge instructions Additional Instructions: Call your primary care doctor in the morning to schedule an appointment to followup on your visit here. Return to the emergency department for new or worsening symptoms including difficulty breathing, temperature higher than 100.4F, inability to keep down fluids, or if you have any other concerns. Referrals: Ester Torres, [employer] [Primary Care Provider] - HPI General Mode of arrival: ambulatory . Date/Time Provider Initiated Documentation: 04/18/24 23:07 . Limitations to Documentation: no limitations . Information obtained by: patient . HPI Narrative: 43yo previously healthy female presenting with 4 days of non-productive cough. Multiple family members in the house with similar symptoms. Cough is keeping her awake at night. Has felt warm, Tmax 100.0F. Associated nausea and dry heaving after coughing spells, once vomited a small amount. Deep breaths trigger coughing. Some nasal congestion, rhinorhea, and throat irritation. No difficulty wallowing. No chest pain or shortness of breath. Has tried tea and motrin at home. Otherwise in her usual state of health. Hoping there is somet kellie to help her stop coughing. Related Data Home Medications ?Medication ?Instructions ?Recorded ?Confirmed clonazepam 0.5 mg disintegrating 0.5 mg PO BID PRN panic attack(s) 04/29/20 04/18/24 tablet #10 tabs levonorgestrel 21 mcg/24 hr (up to 1 device intrauterine ONCE #1 ea 04/15/22 04/18/24 8 years) 52 mg intrauterine device (Mirena) ibuprofen 600 mg tablet 600 mg PO Q6H PRN pain #60 tabs 05/04/23 04/18/24 ketoconazole 2 % topical cream 1 applic topical BID 09/21/23 04/18/24 Previous Rx's ?Medication ?Instructions ?Recorded clonazepam 0.5 mg disintegrating 0.5 mg PO BID PRN panic attack(s) 04/29/20 tablet #10 tabs levonorgestrel 21 mcg/24 hr (up to 1 device intrauterine ONCE #1 ea 04/15/22 8 years) 52 mg intrauterine device (Mirena) ibuprofen 600 mg tablet 600 mg PO Q6H PRN pain #60 tabs 05/04/23 Allergies Allergy/AdvReac Type Severity Reaction Status Date / Time codeine AdvReac Intermediate Nausea Verified 04/18/24 22:58 oxycodone (From Percocet) AdvReac Intermediate Nausea Verified 04/18/24 22:58 Sulfa (Sulfonamide AdvReac Intermediate Nausea, Verified 04/18/24 22:58 Antibiotics) severe headache General Stated Complaint: RespSymp MAGAN: 4 Review of Systems Narrative: see HPI Exam Narrative Exam Narrative: General: Alert, well appearing, well nourished, in no acute distress. Head: Normocephalic, atraumatic Neck: Trachea midline, ?Neck supple. ENT: ?MMM.? No oropharygeal lesions or exudate. Cardiac: ?RRR, no murmurs appreciated Resp: No respiratory distress. CTAB. +cough Abd: ?Non-distended Extremities: ?No deformities.? No peripheral edema. Neurologic: GCS 15. ? Moves all extremities freely against gravity Course Vital Signs Vital signs: Vital Signs Temperature 36.9 C 04/18/24 22:54 Pulse 100 H 04/18/24 22:54 Respiratory Rate 18 04/18/24 22:54 Blood Pressure 152/72 H 04/18/24 22:54 Pulse Oximetry 98 04/18/24 22:54 Temperature 36.9 C 04/18/24 22:54 Temperature Source Oral 04/18/24 22:54 Pulse 100 H 04/18/24 22:54 Respiratory Rate 18 04/18/24 22:54 Respiratory Effort Normal, Non-Labored 04/18/24 22:59 Respiratory Depth Normal 04/18/24 22:59 Blood Pressure 152/72 H 04/18/24 22:54 Blood Pressure Position Sitting 04/18/24 22:54 Pulse Oximetry 98 04/18/24 22:54 Oxygen Delivery Method Room Air 04/18/24 22:54 Oxygen Flow Rate 0 04/18/24 22:54 Pain Level 0 04/18/24 22:54 Medical Decision Making 43yo previously healthy female presenting with 4 days of non-productive cough with associated rhinnorhea and nasal congestion. One episode of scant post- tussive emesis. No chest pain or difficulty breathing. Multiple family members in the house with similar symptoms. Slighty hypertensive and borderline tachycardiac on arrival after ambualting into triage, vital signs otherwise reassuring, afebrile. Well appearing on exam, no respiratory distress, lungs CTAB, HR 90's on my exam. Not concerning for sepsis, pneumonia, asthma, CHF, pulmonary embolism. Would not get labs or CXR. Respiratory viral swab negative. Repeat vital signs at rest normalized without intervention. Advised symptomatic treatment at home. Discharged home; discharge instructions and return precuations were reviewed with patient who verbalized understanding. All questions were answered and she is in agreement with the plan. Lab Data Lab results reviewed: Yes I reviewed the patient's lab results. Labs: Laboratory Tests Range/Units 04/18/24 22:54 COVID-19 Source Nasopharynx SARS-CoV-2 (PCR) (Negative) Negative Influenza Type A (PCR) (Negative) Negative Influenza Type B (PCR) (Negative) Negative RSV (PCR) (Negative) Negative Quality:SDOH Health Related Social Needs: No Data to Display PFSH All Active Problems (Updated 04/18/24 @ 23:51 by Dannielle Paez MD) Cough (Acute) Neoplasm of unspecified behavior of bone, soft tissue, and skin (Acute) [facility] Derm 09/21/23 Pain in pelvis (Acute) Left knee pain (Acute) Family history of breast cancer (Chronic) M, Pat Aunt Low back pain (Acute) Neck pain (Acute) Hiatal hernia with gastroesophageal reflux disease and esophagitis (Acute) Globus sensation (Acute) Post-nasal drip (Acute) Premenstrual dysphoric disorder (Acute) 04/29/20. Rx for Sertraline Major depressive episode (Acute) Psychiatric consult 2019; hasn't tolerated bupropion or concerta; counseling with Mary Doan; h/o Citalopram (09/2017), Buspar, Sertraline (03/2018) & Paroxetine Chronic GERD (Chronic) ENT laryngoscope; nicotine cessation recommended & lifestyle; Upper endoscopy mild esophagitis Panic attacks (Acute) Post-traumatic stress disorder (Chronic) Generalized anxiety disorder (Chronic) Particularly health anxiety; Psychiatric consult 2019; hasn't tolerated bupropion or concerta; counseling with Mary Doan; h/o Citalopram (09/2017), Buspar, Sertraline (03/2018) & Paroxetine ADHD (attention deficit hyperactivity disorder), combined type (Chronic) Psychiatry consult 06/12/2019; not tolerated concerta historically Abnormal thyroid stimulating hormone (TSH) level (Acute 07/08/16) IUD (intrauterine device) in place (Chronic 08/11/17) 2017. Mirena. 2021. Old device removed. New device placed. Tobacco use (Chronic 01/26/18) Vaginal wall prolapse without uterine prolapse (Acute 09/16/16) . That has improved and patient is not currently symptomatic Medical History Atypical squamous cell changes of undetermined significance (ASCUS) on cervical cytology with negative high risk human papilloma virus (HPV) test result (08/04/17) Calculus of kidney (07/08/16) MADHAVI II (cervical intraepithelial neoplasia II) 07/2017 colposcopy biopsy: MADHAVI-2. s/p LEEP. MADHAVI II (cervical intraepithelial neoplasia II) (08/18/17) 07/2017. On colpo directed bx. 09/2017 LEEP: MADHAVI 2 clear margins. COVID Functional urinary incontinence (10/29/16) GERD (gastroesophageal reflux disease) (07/08/16) History of herpes genitalis (08/25/16) Pityriasis rosea Surgical History Cervical Conization/LEEP (05/30/07) S/P wisdom tooth extraction Family History Mother Diabetes Essential hypertension Breast cancer Father Myocardial infarction Grandfather Myocardial infarction Thyroid disorder Grandfather Diabetes Stroke Grandmother Dementia Grandmother Diabetes Neoplasm Lung (Non-Smoker), Ovarian, Renal Stroke Sister Mental disorder BiPolar Asthma Brother Mental disorder Schizophrenia (age 25) Maternal Aunt Neoplasm Colon CA dx'ed late 50s Breast cancer Social History Smoking/Tobacco Use Status: Current every day Tobacco Type: cigarettes Quit status: considering quitting Smoking risk assessment performed?: Yes Alcohol Intake: never Drug use: Never Substance use type: does not use Adopted: No Caregiver/Support person: No Household members: significant other, children and other Details: Ex- [place]-resides in [place]. [place]-F of youngest child. limited contact Housing: house Number of Children: 4 number of grandchildren: 0 Communication Needs: None Education Level: high school Do you need help understanding health information?: Rarely current occupation: Studying for [employer] Pets and animals: Yes Pets and animals: cat(s), dog(s), horse(s) and other Details: chickens Sexually active: Yes Do you think of yourself as: straight/heterosexual Current gender identity: female What is your relationship status?: living with partner How often do you talk on the phone with friends or family?: three or more times per week How often do you get together with friends or relatives?: once per week Do you belong to any clubs or organized social groups?: no Panel score (0-1 are the most socially isolated patients): 2 What type of physical activity do you participate in: none Jennifer/Yarsanism: Worship Seatbelt use: always Drive intox or ride w/intox pizza driver: No Working smoke detector in home: Yes Fire extinguisher in home: Yes Carbon monox detector in home: Yes Do you feel safe at home: Yes Female Reproductive History Menstrual control method: progestin IUCD History History 5 Para 4 Hx # Term Pregnancies 4 Multiple births Hx # Pregnancies 0 Ectopic pregnancies AB induced Hx Number of Living Children 4 AB spontaneous
[2024-04-18 23:42] LABS: Source Nasopharynx
[2024-04-18 23:55] VITALS: BP 108/70; PULSE 80; RESP 18; O2SAT 97
== END 2024-04-19 00:03 | disposition home or self-care (01) ==
LOC: ER 23:51
PROVIDERS: Emergency Provider Student in an Organized Health Care Education/Training Program; PCP Nurse Practitioner Adult Health
DX: J06.9 Acute upper respiratory infection, unspecified; Z79.899 Other long term (current) drug therapy
CPT/HCPCS: 87637; 99283

== ENCOUNTER 2024-06-18 01:26 | Outpatient (CLI) | payer MEDICAID, SELFPAY ==
--- NOTE | 2024-06-18 07:15 | DI.US_ITS ---
Exam(s) US PELVIS TRANSVAGINAL EXAM: US PELVIS TRANSVAGINAL CLINICAL HISTORY: interval F/U for septated large R ovary cyst,pain of ovary,n94.89,n83.201 TECHNIQUE: Ultrasound of the pelvis was performed both transabdominal and transvaginal. COMPARISON: US US ABD PELV TRANSVAG NON-OB from 05/06/2023 FINDINGS: UTERUS: Anteverted. Measures 6.3 cm length x 4.4 cm AP x 4.9 cm wide. There are no uterine fibroids.There is an IUD in place within the endometrial canal appearing to be i n satisfactory position Endometrial thickness measures 5.7 mm. There is no fluid in the endometrial canal. CERVIX: There are no obvious nabothian cysts. RIGHT OVARY: Measures 3.4 x 2.4 x 1.4 cm Small sub cm follicular cysts. The previously present septated 2.5 cm cyst in the right ovary is no l onger seen. LEFT OVARY: Measures 3.3 x 2.1 x 2.5 cm Contains sub cm follicular cysts but also contains a complex cyst measuring 3 x 2 x 2.9 cm. CUL-DE-SAC: No free fluid evident. IMPRESSION: 1. IUD appears to be in satisfactory position in the endometrial canal. No other significant uterine findings. 2. No abnormal right ovarian findings. The previously present 2.5 cm cyst in the right ovary evident on prior ultrasound examination of 05/06/2023 is no longer seen. 3. However, there is presently a 3 x 2.9 cm complex cyst now evident in the opposite-left ovary which was not evident on the April 2023 study. This requires follow-up ultrasound in a few months time. There is no free fluid. DATA REPOSITORY:
== END 2024-06-18 01:46 ==
LOC: DI 01:27
PROVIDERS: PCP Nurse Practitioner Adult Health; Visit Provider Nurse Practitioner Adult Health
DX: N94.89 Other specified conditions associated with female genital organs and menstrual cycle (principal); N83.292 Other ovarian cyst, left side
CPT/HCPCS: 76830; 76856

== ENCOUNTER 2024-06-25 01:54 | Outpatient (CLI) | payer MEDICAID, SELFPAY ==
--- NOTE | 2024-06-25 07:15 | DI.MAMMO_ITS ---
Exam(s) MAMMO SCREENING EXAM: MAMMO SCREENING CLINICAL HISTORY: screening,z12.39 TECHNIQUE: Bilateral full field digital CC and MLO mammographic images were obtained with 3D tomosyn thesis and utilizing computer aided detection (CAD). COMPARISON: Available for comparison. FINDINGS: Masses/Architectural Distortion: There again seen 2 nodules in the outer left breast on the craniocau dad view. No new nodules are seen. No areas of architectural distortion are present. Microcalcifications: No suspicious pleomorphic-type are seen. Skin Thickening/Nipple Retraction: None. IMPRESSION: 1. No significant interval change with no specific features of malignancy noted. 2. Unless there is more urgent need, screening mammography is recommended, as per [employer] [employer] guidelines. BI-RADS Category 2 - Benign Findings Breast Density - Category C - Heterogeneously dense Breast density category C or D implies that the patient has dense breast tissue. Dense breast tissue is very common and is not abnormal but dense breast tissue can make it harder to find cancer on a ma mmogram. Also, dense breast tissue may increase their breast cancer risk. This information about the result of the mammogram report was provided to the patient to raise their awareness. Use this report when you speak with the patient about their risks for breast cancer, which includes their family hist ory. At that time, you may recommend for more screening tests (Ultrasound or MRI) as they might be us eful based on their risk. A negative radiographic report should not delay biopsy if a dominant or clinically suspicious mass is present. Up to ten percent of cancers are not identified on mammography. A negative report may reinforce clinical impression. Adenosis and dense breasts may obscure an underlying neoplasm. False positive reports average 6 to 10%. Patient will receive a letter notifying them of these results.
== END 2024-06-25 02:14 ==
LOC: DI 01:54
PROVIDERS: PCP Nurse Practitioner Adult Health; Visit Provider Nurse Practitioner Adult Health
DX: Z12.31 Encounter for screening mammogram for malignant neoplasm of breast (principal); R92.333 Mammographic heterogeneous density, bilateral breasts; D24.2 Benign neoplasm of left breast
CPT/HCPCS: 77063; 77067

== ENCOUNTER 2024-09-17 01:55 | Outpatient (CLI) | payer MEDICAID, SELFPAY ==
--- NOTE | 2024-09-17 07:00 | DI.US_ITS ---
Exam(s) US PELVIS TRANSVAGINAL EXAM: US PELVIS TRANSVAGINAL CLINICAL HISTORY: interval F/U,complex cyst lt ovary,n83.292. TECHNIQUE: Transabdominal and transvaginal pelvic ultrasound was performed using standard protocol. COMPARISON: US US PELVIS TRANSVAGINAL from 06/18/2024 FINDINGS: UTERUS: Position: Anteverted. Size: 1.8 long by 4.1 AP by 5.3 transverse cm Endometrium: 0.2 cm. Normal for patient's menstrual status. There is an IUD which is in good position . Myometrium: Unremarkable. Cervix: Unremarkable. OVARIES: Right: 3.7 x 1.8 x 3.4 cm Cyst or mass: No suspicious cystic or solid masses. Simple follicular cysts are present. The larges t measures 2.2 cm. This is likely physiologic. Left: 2.7 x 1.3 x 2.3 cm Cyst or mass: No suspicious cystic or solid masses. Simple cysts are present. These are likely phys iologic. DOPPLER: Color: Symmetric and uniform flow to both ovaries. CUL-DE-SAC: Free fluid: None. Other: None. IMPRESSION: 1. Normal-appearing uterus with endometrial stripe within normal limits. 2. There is an IUD which is in good position. 3. Unremarkable bilateral ovaries. DATA REPOSITORY:
== END 2024-09-17 02:15 ==
LOC: DI 01:55
PROVIDERS: PCP Nurse Practitioner Adult Health; Visit Provider Nurse Practitioner Adult Health
DX: N83.292 Other ovarian cyst, left side (principal)
CPT/HCPCS: 76830; 76856

== ENCOUNTER 2024-10-05 11:35 | Outpatient (CLI) | payer MEDICAID, SELFPAY ==
--- NOTE | 2024-10-05 | DI.US_ITS ---
Exam(s) US ABDOMEN LIMITED EXAM: US ABDOMEN LIMITED CLINICAL HISTORY: PAIN UPPER ABDOMEN,R10.10 TECHNIQUE: Ultrasound abdomen performed using standard protocol. COMPARISON: CT RENAL COLIC WO CONTRAST from 10/18/2010 US US PELVIS TRANSVAGINAL from 09/17/2024 FINDINGS: There is no ascites evident. LIVER: There are no hepatic lesions evident nor dilatation of intrahepatic ducts. GALLBLADDER/BILIARY: There is a shadowing gallstone in the gallbladder lumen which measures 1.3 cm. There is no gallbladder distension nor gallbladder wall edema and no pericholecystic fluid. Patient was apparently not tender over this area during scanning today. The common hepatic duct isnot dilated, measuring 3-4mm at the level of jessica hepatis. PANCREAS: There is no evidence of pancreatic mass nor dilatation of the pancreatic duct. RIGHT KIDNEY:Normal size. No cysts nor ominous solid lesions. No hydronephrosis. There is, however , a small 4 mm nonshadowing hyperechoic focus in the mid lateral cortex of the right kidney. This ei ther represents a small nonobstructive calculus or small benign angiomyolipoma. IMPRESSION: 1. Cholelithiasis. There is a 13 millimeter gallstone noted in the gallbladder lumen. No ultrasoun d evidence of acute cholecystitis. The CBD is not dilated. 2. There is a 4 millimeter nonshadowing hyperechoic focus in the lateral cortex of the right kidney. 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 Cannot exclude possibly that this may represent a nonshadowing nonobstructive calculus. 3. No other right upper quadrant ultrasound findings and there is no ascites. DATA REPOSITORY:
== END 2024-10-05 11:55 ==
LOC: DI 11:36
PROVIDERS: PCP Nurse Practitioner Adult Health; Visit Provider Physician Assistant Medical
DX: K80.80 Other cholelithiasis without obstruction (principal)
CPT/HCPCS: 76705

== ENCOUNTER 2024-10-05 17:55 | Outpatient (REF) | payer MEDICAID, SELFPAY ==
[2024-10-05 16:28] LABS: Abs Immature Grans 0.03 10^3/uL (0.0-0.06); Absolute Basophil Count 0.03 10^3/uL (0.0-0.2); Absolute Eosinophil Count 0.23 10^3/uL (0.0-0.7); Absolute Lymphocyte Count 1.85 10^3/uL (1.2-3.4); Absolute Monocyte Count 0.47 10^3/uL (0.1-0.8); Absolute Neutrophil Count 6.57 10^3/uL (1.2-6.7); Basophils % 0.3 %; Eosinophils % 2.5 %; HCT 40.4 % (36.0-46.0); Immature Grans % 0.3 %; Lymphocytes % 20.2 %; MCH 30.7 pg (27.0-33.0); MCHC 34.7 % (32.0-36.0); MCV 89 fL (80-95); Monocytes % 5.1 %; Neutrophils % 71.6 %; Platelet Count 263 10^3/uL (130-400); RBC 4.56 10^6/uL (3.93-5.22); RDW 12.1 % (11.7-14.6); RDW-SD 39.3 fL; WBC 9.18 10^3/uL (4.4-10.8)
[2024-10-05 16:49] LABS: ALT 51 U/L (14-59); AST 20 U/L (15-37); Albumin 4.3 g/dL (3.4-5.0); Alkaline Phosphatase 78 U/L (46-116); Anion Gap 7.9 mmol/L (3-11); BUN 15 mg/dL (7-18); Bilirubin, Total 0.5 mg/dL (0.2-1.0); CO2 27.1 mmol/L (21.0-32.0); CREATININE 0.9 mg/dL (0.55-1.02); Calcium 9.5 mg/dL (8.5-10.1); Chloride 105 mmol/L (98-107); Estimated GFR 80.34 (mL/min/1.73m2); Glucose 93 mg/dL (74-106); Lipase 30 U/L (<78); Potassium 3.6 mmol/L (3.5-5.1); Sodium 140 mmol/L (136-145)
== END 2024-10-05 17:56 | disposition home or self-care (01) ==
LOC: LBN 17:55
PROVIDERS: PCP Nurse Practitioner Adult Health; Visit Provider Physician Assistant Medical
DX: R10.10 Upper abdominal pain, unspecified (principal)
CPT/HCPCS: 80053; 83690; 85025

== ENCOUNTER 2024-10-19 01:51 | Outpatient (CLI) | payer MEDICAID, SELFPAY ==
[2024-10-19 11:26] LABS: Calculated LDL 99 mg/dL (<100); Cholesterol 167 mg/dL (<200); Folate 16.2 ng/mL (8.6-20.0); HDL Cholesterol 63 mg/dL (>or=50); Triglyceride 27 mg/dL (<150); Vitamin B12 428 pg/mL (193-986)
== END 2024-10-19 01:52 | disposition home or self-care (01) ==
LOC: LBO 01:51
PROVIDERS: PCP Nurse Practitioner Adult Health; Visit Provider Nurse Practitioner Adult Health
DX: R79.89 Other specified abnormal findings of blood chemistry (principal); Z72.0 Tobacco use; F41.1 Generalized anxiety disorder; Z13.220 Encounter for screening for lipoid disorders; Z13.1 Encounter for screening for diabetes mellitus
CPT/HCPCS: 36415; 80061; 82607; 82746

== ENCOUNTER 2025-02-18 07:32 | Outpatient (CLI) | payer MEDICAID, SELFPAY ==
--- NOTE | 2025-02-18 07:15 | DI.RAD_ITS ---
Exam(s) XR CERVICAL SPINE COMP 4-5V EXAM: XR CERVICAL SPINE COMP 4-5V CLINICAL HISTORY: assess bony alignment,chronic neck pain, m54.2. TECHNIQUE: 2D digital imaging was performed. Five views were performed. COMPARISON: No exams were available for comparison FINDINGS: BONES: No fracture or destructive lesion. Vertebral bodies are unremarkable. There are mild facet degenerative changes. DISKS: There is mild narrowing of the C 4 5 disc space and moderate narrowing of the C5-6 disc space. There is [id number] right neural foraminal narrowing at these levels. There are small endplate osteophytes at these levels. The remaining intervertebral disc spaces are maintained. ALIGNMENT: There is degenerative straightening of the normal cervical lordosis. The odontoid and atlantoaxial articulations are normal. SOFT TISSUE: Normal. The lung apices are clear. IMPRESSION: Degenerative changes greatest at C4-5 and C5-6. DATA REPOSITORY: RADIATION DOSE DELIVERED:
== END 2025-02-18 07:52 ==
LOC: DI 07:32
PROVIDERS: PCP Nurse Practitioner Adult Health; Visit Provider Nurse Practitioner Adult Health
DX: M50.121 Cervical disc disorder at C4-C5 level with radiculopathy (principal); M50.122 Cervical disc disorder at C5-C6 level with radiculopathy
CPT/HCPCS: 72050